=== PATIENT | male | born 2000 | race Hispanic/Latino ===

== ENCOUNTER 2019-05-20 00:30 | Emergency (ER) | payer OTHER ==
[2019-05-20] MEDS ORDERED: ACETAMINOPHEN EXTRA STRENGTH 500 MG TABLET ONE (00:43)
== END 2019-05-20 02:37 | disposition home or self-care (01) ==
LOC: EDH 00:30
DX: J20.9 Acute bronchitis, unspecified (principal); Z72.0 Tobacco use
CPT/HCPCS: 71046; 87804; 87880